=== PATIENT | female | born 1965 | race Caucasian/White ===

== ENCOUNTER 2017-02-28 10:17 | Emergency (ER) | payer BC ==
--- NOTE | 2017-02-28 11:32 | UC ---
Bite Injury/Animal HPI - HPI Summary HPI Summary: complaint of tick bite left side of trunk found the tick embedded in left side daughter tried to remove but the head is still stuck in her tors unsure how long it was embedded - probably for approx 24-36 hours feels itchy ,warm and red rash surrounding bite denies fever - History of Current Complaint Chief Complaint: UCSkin Stated Complaint: TICK BITE Time Seen by Provider: 02/28/17 10:47 Hx Obtained From: Patient - Allergies/Home Medications Allergies/Adverse Reactions: Allergies Allergy/AdvReac Type Severity Reaction Status Date / Time No Known Allergies Allergy Verified 02/28/17 10:50 Home Medications: Home Medications Ibuprofen TAB* [Advil TAB*] 800 mg PO Q6H PRN 02/28/17 [History Confirmed ] PMH/Surg Hx/FS Hx/Imm Hx Previously Healthy: Yes - Surgical History Surgical History: None - Family History Known Family History: Negative: Cardiac Disease, Hypertension, Diabetes - Social History Occupation: Employed Full-time Lives: With Family Alcohol Use: Daily Alcohol Amount: 3-4 beers daily Substance Use Type: None Smoking Status (MU): Heavy Every Day Tobacco Smoker Type: Cigarettes Amount Used/How Often: 1 ppd Length of Time of Smoking/Using Tobacco: since age 13 Have You Smoked in the Last Year: Yes Cessation Counseling: Patient Advised to Stop Review of Systems Constitutional: Negative Skin: Rash, Other - tick bite Eyes: Negative ENT: Negative Respiratory: Negative Cardiovascular: Negative Gastrointestinal: Negative Genitourinary: Negative Motor: Negative Neurovascular: Negative Musculoskeletal: Negative Neurological: Negative Psychological: Negative All Other Systems Reviewed And Are Negative: Yes Physical Exam Triage Information Reviewed: Yes Appearance: No Pain Distress, Well-Nourished, Obese Vital Signs: Initial Vital Signs Temp 99.2 F 02/28/17 10:44 Pulse 83 02/28/17 10:44 Resp 16 02/28/17 10:44 BP 161/90 02/28/17 10:44 Pulse Ox 97 02/28/17 10:44 Vital Signs Reviewed: Yes Eyes: Positive: Conjunctiva Clear ENT: Positive: Pharynx normal, TMs normal Neck: Positive: No Lymphadenopathy Respiratory: Positive: Lungs clear, Normal breath sounds, No respiratory distress, No accessory muscle use Cardiovascular: Positive: RRR, No Murmur, Pulses Normal Abdomen Description: Positive: Nontender, Soft, Distended Bowel Sounds: Positive: Present Musculoskeletal: Positive: No Edema Neurological: Positive: Alert Psychological Exam: Normal Skin: Positive: Other - left side of trunk with tick bite 1cm area of erythema around tick bite Bite Injury Course/Dx - Course Course Of Treatment: exam completed. removed tick from skin with tweezer forceps. will treat prophylactically with doxycycline -followup with PCP - Differential Dx/Diagnosis Differential Diagnosis/HQI/PQRI: Other - tick bite, erythema nigrans Provider Diagnoses: tick bite. elevated blood pressure Discharge - Discharge Plan Condition: Stable Disposition: HOME Prescriptions: DOXYcycline CAP(*) [DOXYcycline 100MG CAP(*)] 100 mg PO DAILY #2 cap Patient Education Materials: Tick Bite (ED) Referrals: No Primary Care Phys,NOPCP [Primary Care Provider] - Ly Garcia MD [Medical Doctor] - Additional Instructions: Your blood pressure is elevated. Please contact your primary care provider within 1 day -4 weeks for further evaluation. Please take antibiotic as directed Increase fluids and rest Take acetaminophen for pain Please review your discharge instructions. If your symptoms do not improve please call your primary care provider or return to urgent care.
== END 2017-02-28 11:51 | disposition home or self-care (01) ==
LOC: UCEAST 10:17
DX: S30.861A Insect bite (nonvenomous) of abdominal wall, initial encounter (principal); F17.210 Nicotine dependence, cigarettes, uncomplicated; I10 Essential (primary) hypertension; W57.XXXA Bitten or stung by nonvenomous insect and other nonvenomous arthropods, initial encounter
CPT/HCPCS: 99201; G0463

== ENCOUNTER 2017-05-13 17:37 | Emergency (ER) | payer BC ==
[2017-05-13 17:48] VITALS: BP 148/84
--- NOTE | 2017-05-13 18:35 | UC ---
Yovanny Vaughn Benjamin, scribed for Shayan Maldonado MD on 05/13/17 at 1810 . General HPI - HPI Summary HPI Summary: 51yo female comes to because her grandson that lives in the same house was recently dxed with whooping cough and she is here for abx for exposure. Pt is asymptomatic, denies any sickness. Pt reports mild cough, but states that she normally coughs because of her tabocco use. Denies any significant PMHx. Smokers. Pt havent gotten a tetanus shot in the past 5 years. Pt is a smoker. - History of Current Complaint Chief Complaint: UCRespiratory Stated Complaint: COUGH Time Seen by Provider: 05/13/17 18:01 Hx Obtained From: Patient Current Severity: None Pain Location at: none Pain Radiates to: none Associated Signs & Symptoms: Positive: Cough - chronic - Allergy/Home Medications Allergies/Adverse Reactions: Allergies Allergy/AdvReac Type Severity Reaction Status Date / Time No Known Allergies Allergy Verified 02/28/17 10:50 PMH/Surg Hx/FS Hx/Imm Hx Previously Healthy: No - Surgical History Surgical History: None - Family History Known Family History: Negative: Cardiac Disease, Hypertension, Diabetes - Social History Occupation: Employed Full-time Lives: With Family Alcohol Use: None Alcohol Amount: quit 2 months ago Substance Use Type: None Smoking Status (MU): Heavy Every Day Tobacco Smoker Type: Cigarettes Amount Used/How Often: 1 ppd Length of Time of Smoking/Using Tobacco: since age 13 Have You Smoked in the Last Year: Yes Review of Systems Constitutional: Negative Skin: Negative Eyes: Negative ENT: Negative Respiratory: Cough Cardiovascular: Negative Gastrointestinal: Negative Genitourinary: Negative Motor: Negative Neurovascular: Negative Musculoskeletal: Negative Neurological: Negative Psychological: Negative All Other Systems Reviewed And Are Negative: Yes Physical Exam Triage Information Reviewed: Yes Appearance: Well-Appearing, No Pain Distress, Well-Nourished Vital Signs: Initial Vital Signs Temp 99.6 F 05/13/17 17:39 Pulse 86 05/13/17 17:39 Resp 16 05/13/17 17:39 BP 148/84 05/13/17 17:39 Pulse Ox 99 05/13/17 17:39 ENT: Positive: Normal ENT inspection Neck: Positive: Supple Respiratory: Positive: Chest non-tender, Lungs clear, Normal breath sounds Cardiovascular: Positive: RRR, No Murmur Abdomen Description: Positive: Nontender Musculoskeletal: Positive: ROM Intact Neurological: Positive: Alert, Muscle Tone Normal Psychological: Positive: Age Appropriate Behavior Course/Dx - Course Course Of Treatment: Reviewed pt's medications list. Female with confirmed case of whooping cough in the family. Rx with z pack. FU pmd. - Differential Dx - Multi-Symptom Provider Diagnoses: Post exposure prophylaxis whooping cough Discharge - Discharge Plan Condition: Good Disposition: HOME Prescriptions: Azithromycin TAB* [Zithromax TAB (Z-VIVIANE) 250 mg #6 tabs] 2 tab PO .TODAY, THEN 1 DAILY #1 viviane Patient Education Materials: Pertussis (ED) Referrals: [facility] [Outside] No Primary Care Phys,NOPCP [Primary Care Provider] - The documentation as recorded by the Yovanny carlson Benjamin accurately reflects the service I personally performed and the decisions made by me, Shayan Maldonado MD.
== END 2017-05-13 18:30 | disposition home or self-care (01) ==
LOC: UCEAST 17:37
DX: R05 Cough (principal); Z20.818 Contact with and (suspected) exposure to other bacterial communicable diseases; F17.210 Nicotine dependence, cigarettes, uncomplicated
CPT/HCPCS: 99212; G0463

== ENCOUNTER 2018-03-31 07:30 | Emergency (ER) | payer BC ==
[2018-03-31] MEDS ORDERED: Lidocaine 2% PF * 5 ML VIAL INJ ONE (08:02)
--- NOTE | 2018-03-31 09:06 | RAD ---
Indication: Lump LEFT ankle for many years now has become red, hot, swollen. Concern for abscess. Comparison: No relevant prior exams available on the [facility] PACS for comparison. Technique: Ultrasound lateral aspect LEFT ankle corresponding with the region of clinical concern. Report: Within the subcutaneous tissue plane there is an ill-defined 2.7 x 1.4 x 2.1 cm region of heterogeneous echogenicity with punctate echogenic foci with equivocal posterior acoustic shadowing. No keeley walled off/encapsulated collection evident. A few marginal blood vessels are visualized on Doppler. No compelling marginal hyperemia. IMPRESSION: Nonspecific finding. 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 Given history of chronicity given absence of a well defined margin or surrounding hyperemia an abscess collection is considered less likely. Correlate with clinical assessment.
--- NOTE | 2018-03-31 09:23 | UC ---
Betzy Vaughn Elizabeth, scribed for Lu Heath MD on 03/31/18 at 0836 . Lower Extremity/Ankle HPI - HPI Summary HPI Summary: This patient is a 52 year old F presenting to [facility] with a chief complaint of left outer ankle pain since 2 days ago. The patient reports that her outer ankle has been swollen for years (2007 or 2008) but it only became painful in the last 2 days, with the pain worsening in the last day. The patient reports soaking her ankle in Epsom salts 2 days ago and elevating it. The patient notes that the swollen area began to drain 2 days ago. The patient rates the pain 1/ 10 in severity. Symptoms aggravated by standing. Symptoms alleviated by elevation and epsom salt soaks. Pt has take motrin with improvement. Patient reports erythema around her left ankle. Pt's medications reviewed this visit - History of Current Complaint Chief Complaint: UCWounds Stated Complaint: ANKLE AND FOOT PAIN Time Seen by Provider: 03/31/18 08:01 Hx Obtained From: Patient Hx Last Menstrual Period: no Onset/Duration: Gradual Onset, Lasting Weeks, Still Present, Worse Since - 1 day ago Severity Initially: Mild Severity Currently: Mild Pain Intensity: 1 Pain Scale Used: 0-10 Numeric Aggravating Factor(s): Standing Alleviating Factor(s): Nothing Able to Bear Weight: Yes - Allergies/Home Medications Allergies/Adverse Reactions: Allergies Allergy/AdvReac Type Severity Reaction Status Date / Time No Known Allergies Allergy Verified 03/31/18 07:46 PMH/Surg Hx/FS Hx/Imm Hx Previously Healthy: Yes Other Endocrine History: NEGATIVE DIABETES Cardiovascular History: Hypertension - Surgical History Surgical History: None - Family History Known Family History: Negative: Cardiac Disease, Hypertension, Diabetes - Social History Occupation: Employed Full-time Lives: With Family Alcohol Use: Rare Alcohol Amount: quit 2 months ago Substance Use Type: None Smoking Status (MU): Heavy Every Day Tobacco Smoker Type: Cigarettes Amount Used/How Often: 1 ppd Length of Time of Smoking/Using Tobacco: since age 13 Have You Smoked in the Last Year: Yes Review of Systems Constitutional: Negative Skin: Other - ERYTHEMA AROUND LEFT ANKLE ENT: Epistaxis - NEGATIVE EPISTAXIS Cardiovascular: Negative - NEGATIVE CHEST PAIN Musculoskeletal: Edema - LEFT ANKLE, Other: - LEFT OUTER ANKLE PAIN All Other Systems Reviewed And Are Negative: Yes Physical Exam - Summary Physical Exam Summary: Vital Signs Reviewed: Yes A+Ox3, no distress Eyes: Conjunctiva Clear, JAIME. EOM intact and full ENT: Hearing grossly normal TM x 2 clear, mmoist, uvula midline, no exudate, no erythema Neck: Positive: Supple Respiratory: Positive: No respiratory distress, No accessory muscle use + CTA throughout no w/r Cardiovascular: RRR nl s1, s2 no m/r CBT <2 sec 2+DP, PT abd soft + BS nt/nd no guarding, no distension Musculoskeletal Exam: KLEIN x 4 without difficulty Strength Intact, ROM Intact Neurological: Positive: Alert, + sensation throughout Psychological: Positive: Normal Response To Family Skin: Positive: left lateral ankle: pt with area of skin cellulitis and focal area of edema superior to left lateral malleolus firm with scant, clear discharge no fluctuance. warm mild TTP Triage Information Reviewed: Yes Vital Signs: Initial Vital Signs Temp 98 F 03/31/18 07:49 Pulse 85 03/31/18 07:49 Resp 16 03/31/18 07:49 BP 141/80 03/31/18 07:49 Pulse Ox 98 03/31/18 07:49 Diagnostics - Radiology US Soft Tissue Ext-Lt Xray Interpretation: Positive (See Comments) Radiology Interpretation Completed By: Radiologist Re-Evaluation - Re-Evaluation 1st re-eval Re-Evaluation Time: 09:27 Change: Unchanged Comment: Discussed US results with patient. will not I=D. again reviewed wound care. abx. return prcautions. work note Lower Extremity Course/Dx - Course Course Of Treatment: Pt with draining wound lateral malleoulus left leg - pt state chronic area of inflammation thought was ganglion cyts not with surrounding erythema dn derainage. will ultrasound. wound cultre. ?I+D. wound care. prtho f/u. strict return precautions. mild elevated htn - recommed PCP f/u - Differential Dx/Diagnosis Provider Diagnoses: cellulitis. wound infection Discharge - Sign-Out/Discharge Documenting (check all that apply): Discharge/Admit/Transfer - Discharge Plan Condition: Stable Disposition: HOME Prescriptions: Amoxicillin/Clavulanate TAB* [Augmentin TAB 875*] 875 mg PO BID #20 tab Patient Education Materials: Cellulitis (ED), Ankle Bursitis (ED) Referrals: Leander Hector MD [Medical Doctor] - [facility] [place] [facility] [Outside] Additional Instructions: - cover your wound with antibiotiic ointment, bandage and vito wrap for comfort and support - take antibiotic 2 times a day as prescribed until gone - elevate your leg to help with swelling and pain - epsom salt soaks 2-3 times a day - contact the orthopedic provider office today to schedule a follow-up appointment - if you develop reddness, red streaking, fever, or any other concerns it is recommended you go to the emergency department for further evaluation and treatment - Okay to alternate ibuprofen (Advil, Motrin) and Tylenol every 3 hours for pain or fever. Take with food. Do NOT take for more than 4-5 days. - You have also been given the contact information for the physician referral center - this office will assit you with establishing a new primary care provider - Billing Disposition and Condition Condition: STABLE Disposition: HOME The documentation as recorded by the Betzy carlson Elizabeth accurately reflects the service I personally performed and the decisions made by me, Lu Heath MD.
[2018-03-31 09:45] VITALS: BP 165/90
--- NOTE | 2018-04-03 17:48 | UC ---
- Progress Note Progress Note: Wound culture final with 2+ Peptostrep Anaerobius --- Unfortunately, the visit note is not completed at this time - but it appears pt was discharged with Augmentin. Please call to verify the above. If on augmentin - may continue. ...If not on augmentin, will rx. Re-Evaluation - Re-Evaluation 1st re-eval Re-Evaluation Time: 09:27 Change: Unchanged Comment: Discussed US results with patient Discharge - Sign-Out/Discharge Documenting (check all that apply): Post-Discharge Follow Up - Discharge Plan Condition: Stable Disposition: HOME Prescriptions: Amoxicillin/Clavulanate TAB* [Augmentin TAB 875*] 875 mg PO BID #20 tab Patient Education Materials: Cellulitis (ED), Ankle Bursitis (ED) Referrals: [facility] [place] [facility] [Outside] Leander Hector MD [Medical Doctor] - Additional Instructions: - cover your wound with antibiotiic ointment, bandage and vito wrap for comfort and support - take antibiotic 2 times a day as prescribed until gone - elevate your leg to help with swelling and pain - epsom salt soaks 2-3 times a day - contact the orthopedic provider office today to schedule a follow-up appointment - if you develop reddness, red streaking, fever, or any other concerns it is recommended you go to the emergency department for further evaluation and treatment - Okay to alternate ibuprofen (Advil, Motrin) and Tylenol every 3 hours for pain or fever. Take with food. Do NOT take for more than 4-5 days. - You have also been given the contact information for the physician referral center - this office will assit you with establishing a new primary care provider - Billing Disposition and Condition Condition: STABLE Disposition: HOME
--- NOTE | 2018-04-04 09:16 | UC ---
- Progress Note Progress Note: 04-04-18 MRSA: negative S. Aureus: negative Peptostreptococcus anaerobius: 2 + Call patient to document progress and that condition is improving. Follow up as needed. Quentin Mclaughlin MD Re-Evaluation - Re-Evaluation 1st re-eval Re-Evaluation Time: 09:27 Change: Unchanged Comment: Discussed US results with patient Discharge - Sign-Out/Discharge Documenting (check all that apply): Post-Discharge Follow Up - Discharge Plan Condition: Stable Disposition: HOME Prescriptions: Amoxicillin/Clavulanate TAB* [Augmentin TAB 875*] 875 mg PO BID #20 tab Patient Education Materials: Cellulitis (ED), Ankle Bursitis (ED) Referrals: [facility] [place] [facility] [place]Outside] Leander Hector MD [Medical Doctor] - Additional Instructions: - cover your wound with antibiotiic ointment, bandage and vito wrap for comfort and support - take antibiotic 2 times a day as prescribed until gone - elevate your leg to help with swelling and pain - epsom salt soaks 2-3 times a day - contact the orthopedic provider office today to schedule a follow-up appointment - if you develop reddness, red streaking, fever, or any other concerns it is recommended you go to the emergency department for further evaluation and treatment - Okay to alternate ibuprofen (Advil, Motrin) and Tylenol every 3 hours for pain or fever. Take with food. Do NOT take for more than 4-5 days. - You have also been given the contact information for the physician referral center - this office will assit you with establishing a new primary care provider - Billing Disposition and Condition Condition: STABLE Disposition: HOME
== END 2018-03-31 09:54 | disposition home or self-care (01) ==
LOC: UCEAST 07:30
DX: S91.002A Unspecified open wound, left ankle, initial encounter (principal); L03.116 Cellulitis of left lower limb; B96.89 Other specified bacterial agents as the cause of diseases classified elsewhere; X58.XXXA Exposure to other specified factors, initial encounter; Y93.9 Activity, unspecified; Y92.9 Unspecified place or not applicable; I10 Essential (primary) hypertension; F17.210 Nicotine dependence, cigarettes, uncomplicated
CPT/HCPCS: 87070; 87076; 87205; 87640; 87641; 99212; G0463

== ENCOUNTER 2018-05-03 05:51 | Day surgery (SDC) | payer BC ==
[2018-05-03] MEDS ORDERED: Dexamethasone IV* 4 MG/ML 1 ML (4 MG) IV SLOW PU ONE (06:00)
[2018-05-03] MEDS ORDERED: Buffered Lidocaine 0.9% SYRIN* 5 ML/SYR SYRINGE INTRADERM ONE (06:00)
[2018-05-03] MEDS ORDERED: Famotidine IV* 10 MG/ML 2 ML (20 mg) IV ONE (06:00)
[2018-05-03] MEDS ORDERED: ceFAZolin 2 GM PREMIX (*) 2 GM/50 ML BAG IVPB ONE (07:03)
[2018-05-03] MEDS ORDERED: Dexamethasone IV* 4 MG/ML 1 ML (4 MG) ONE (07:03)
[2018-05-03] MEDS ORDERED: Famotidine IV* 10 MG/ML 2 ML (20 mg) ONE (07:03)
[2018-05-03] MEDS ORDERED: Buffered Lidocaine 0.9% SYRIN* 5 ML/SYR SYRINGE ONE (07:04)
[2018-05-03] MEDS ORDERED: Bupivacaine 0.5% SDV PF* 30ML VIAL ONE (07:05)
[2018-05-03] MEDS ORDERED: Lidocaine 2% PF * 5 ML VIAL ONE ×2 (07:05→07:49)
[2018-05-03] MEDS ORDERED: fentaNYL* 50 MCG/ML 2 ML VIAL (100 MCG VIAL) ONE (07:17)
[2018-05-03] MEDS ORDERED: Midazolam* 1 MG/ML 2 ML VIAL (2 MG) ONE (07:18)
[2018-05-03] MEDS ORDERED: Propofol* 10 MG/ML 20 ML BTL IV PUSH ONE (07:53)
[2018-05-03] MEDS ORDERED: Lidocaine 2% PF* 10 ML AMP ONE (07:54)
[2018-05-03] MEDS ORDERED: Naloxone* 0.4 MG/ML 1 ML VIAL IV PRN (08:17)
[2018-05-03 08:35] VITALS: BP 167/93
[2018-05-03] MEDS ORDERED: oxyCODONE TAB* 5 MG TAB ONE (09:28)
--- NOTE | 2018-05-03 21:29 | OP ---
DATE OF SURGERY: 05/03/18 - [facility] DATE OF : 63 SURGEON: Thor Robledo MD. EDI ANALYST: Shauna Tapia PA-C. PREOPERATIVE DIAGNOSIS: Infected bursa, left lateral malleolus. POSTOPERATIVE DIAGNOSIS: Infected bursa, left lateral malleolus. OPERATIVE PROCEDURE: Excision and debridement, left ankle bursa. DESCRIPTION OF PROCEDURE: The patient was taken to the operating room where a lateral positioning was used with MAC anesthesia and 1% lidocaine. We were able to make a 5 cm longitudinal incision over the ulcer and bursa in the left distal fibula area. We ellipticized the ulcer and excised the subcu. We ellipticized the bursa. We then irrigated thoroughly. We sent the bursa for pathology, made deep cultures and closed with Monocryl, nylon sutures and a compression dressing. [id number] #: [id number] MTDD
== END 2018-05-03 10:20 | disposition home or self-care (01) ==
LOC: OR 05:51
PROVIDERS: ATTEND Orthopaedic Surgery
DX: L72.0 Epidermal cyst (principal); Z72.0 Tobacco use; Z68.41 Body mass index [BMI] 40.0-44.9, adult; F41.9 Anxiety disorder, unspecified; G54.0 Brachial plexus disorders
CPT/HCPCS: 87070; 87073; 87076; 87077; 87185; 87186; 87205; 88304; A9270-GY; J0690; J1100; J2001; J2250; J2704; J3010